=== PATIENT | male | born 1975 | race Caucasian/White ===

== ENCOUNTER 2019-11-07 21:38 | Emergency (ER) | payer OTHER, BC ==
[~2019-11-07] VITALS: Ht 180.3 cm; Wt 110.0 kg
[2019-11-07 21:44] VITALS: BP 145/99
== END 2019-11-07 22:51 | disposition home or self-care (01) ==
LOC: ER 21:39
DX: T23.272A Burn of second degree of left wrist, initial encounter (principal); T24.212A Burn of second degree of left thigh, initial encounter; T24.211A Burn of second degree of right thigh, initial encounter; X11.8XXA Contact with other hot tap-water, initial encounter; Y93.89 Activity, other specified; Y92.89 Other specified places as the place of occurrence of the external cause; Y99.8 Other external cause status
CPT/HCPCS: 16000; 99282